=== PATIENT | female | born 1970 | race Caucasian/White ===

== ENCOUNTER 2024-01-14 10:40 | Emergency (ER) | payer SELFPAY ==
[2024-01-14] MEDS: Sodium Chloride 0.9% 1,000 ML IV ONE ×3 (11:05→13:11)
[2024-01-14] MEDS ORDERED: Sodium Chloride 0.9% 10 ML Syringe FLUSH PRN (11:12)
[2024-01-14 12:13] LABS: BASOPHILS ABSOLUTE AUTO 0.1 K/mm3 (0.0-0.2); BASOPHILS PERCENT AUTO 0.5 % (0.0-1.0); EOSINOPHILS ABSOLUTE AUTO 0.4 K/mm3 (0.0-0.4); EOSINOPHILS PERCENT AUTO 3.2 % (0.0-6.0); HEMATOCRIT 31.5 % (37.0-47.0); HEMOGLOBIN 10.3 gm/dl (12.0-16.0); IMMATURE GRAN ABSOLUTE AUTO 0.06 K/mm3 (0.00-0.05); IMMATURE GRAN PERCENT AUTO 0.5 % (0.0-0.4); LYMPHOCYTES ABSOLUTE AUTO 1.4 K/mm3 (1.0-4.8); LYMPHOCYTES PERCENT AUTO 10.6 % (24.0-44.0); MEAN CORPUSCULAR HEMOGLOBIN 28.2 pg (28.0-32.0); MEAN CORPUSCULAR HGB CONC 32.7 g/dl (32.0-36.0); MEAN CORPUSCULAR VOLUME 86.3 fl (83.0-99.0); MEAN PLATELET VOLUME 11.1 fl (9.4-12.3); MONOCYTES ABSOLUTE AUTO 1.1 K/mm3 (0.0-0.8); MONOCYTES PERCENT AUTO 8.7 % (0.0-8.0); NEUTROPHILS PERCENT AUTO 76.5 % (41.0-71.0); PLATELET COUNT,PLT 231 K/mm3 (150-400); RED BLOOD CELL COUNT 3.65 M/mm3 (4.10-5.30); WHITE BLOOD CELL COUNT,WBC 13.01 K/mm3 (3.9-11.3)
[2024-01-14 12:51] LABS: LACTIC ACID 0.7 mmol/L (0.4-2.0)
[2024-01-14 12:55] LABS: A/G RATIO 0.9 (1-2); ALANINE AMINOTRANSFERASE,ALT 12 U/L (14-59); ALBUMIN 2.7 g/dl (3.4-5.0); ALKALINE PHOSPHATASE 125 U/L (46-116); ANION GAP 16.6 (5-15); ASPARTATE AMNIOTRANSFERASE,AST 10 U/L (15-37); BILIRUBIN TOTAL 0.3 mg/dL (0.2-1.0); BLOOD UREA NITROGEN,BUN 35 mg/dL (7-18); BUN/CREATININE RATIO 14.6 (14-18); CALCIUM 7.7 mg/dL (8.5-10.1); CARBON DIOXIDE,CO2 19 mEq/L (21-32); CHLORIDE,CL 106 mEq/L (98-107); CREATINE KINASE,CK 40 U/L (26-192); CREATININE 2.4 mg/dL (0.55-1.02); ESTIMATED GFR 24 mL/min (>60); GLUCOSE RANDOM 98 mg/dL (70-99); LIPASE 15 U/L (16-77); MAGNESIUM 1.9 mg/dL (1.8-2.4); POTASSIUM,K 3.6 mEq/L (3.5-5.1); PROTEIN TOTAL,TP 5.6 g/dl (6.4-8.2); SODIUM,NA 138 mEq/L (136-145); TSH 0.301 uIU/mL (0.358-3.74)
[2024-01-14 12:56] LABS: ACETAMINOPHEN 0 ug/mL (10-30)
[2024-01-14 13:19] LABS: T4 FREE 0.93 ng/dL (0.76-1.46)
[2024-01-14 14:52] LABS: APPEARANCE,URINE CLEAR (Clear); BILIRUBIN,URINE NEGATIVE (Negative); COLOR,URINE YELLOW (Yellow); GLUCOSE,URINE NEGATIVE (Negative); KETONES,URINE NEGATIVE (Negative); LEUKOCYTE ESTERASE,URINE NEGATIVE (Negative); NITRITE,URINE NEGATIVE (Negative); OCCULT BLOOD,URINE NEGATIVE (Negative); PH,URINE 6.5 (5.0-8.0); PROTEIN,URINE NEGATIVE (Negative); UROBILINOGEN,URINE 0.2 (0.2-1.0)
[2024-01-14 15:08] LABS: BACTERIA,URINE FEW /hpf (FEW); EPITHELIAL CELLS,URINE 0-5 /hpf (0-5); MUCUS,URINE RARE /hpf (FEW); RBC,URINE 0-5 /hpf (0-5); WBC,URINE 0-5 /hpf (0-5)
[2024-01-14 15:10] LABS: AMPHETAMINES SCREEN, URINE NEGATIVE (CUTOFF=500); BARBITURATE SCREEN,URINE NEGATIVE (CUTOFF=200); BENZODIAZEPINES SCREEN,URINE NEGATIVE (CUTOFF=150); BUPRENORPHINE SCREEN,URINE NEGATIVE (CUTOFF=10); METHADONE SCREEN, URINE NEGATIVE (CUTOFF=200); METHAMPHETAMINES SCREEN, URINE NEGATIVE (CUTOFF=500); OXYCODONE SCREEN,URINE NEGATIVE (CUT0FF=100); THC SCREEN,URINE 20 NG/ML NEGATIVE (CUTOFF=50)
== END 2024-01-14 17:50 | disposition left against medical advice (07) ==
LOC: JD.ED 10:40
DX: I95.2 Hypotension due to drugs (principal); T42.6X5A Adverse effect of other antiepileptic and sedative-hypnotic drugs, initial encounter
CPT/HCPCS: 36415; 71045; 80053; 80143; 80179; 80306; 80307; 81001; 82550; 83605; 83690; 83735; 84439; 84443; 84484; 85025; 87040; 87086; 93005; 96361; 96365; 96366; 99285; C1758; J7030